=== PATIENT | male | born 1970 | race African-American/Black ===

== ENCOUNTER 2021-02-12 16:42 | Emergency (ER) | payer MEDICAID ==
[~2021-02-12] VITALS: Ht 182.9 cm; Wt 108.0 kg
[2021-02-12 17:34] LABS: BASOPHILS % 0.5 % (0.0-2.0); EOSINOPHILS % 0.6 % (0.0-5.0); HEMATOCRIT. 44.1 % (42.0-52.0); HEMOGLOBIN. 15.1 g/dL (14.0-18.0); LYMPHOCYTES % 33.5 % (20.0-50.0); MEAN CORPUSCULAR HEMOGLOBIN 30.5 pg (28.0-32.0); MEAN CORPUSCULAR VOLUME 89.1 fL (80.0-94.0); MONOCYTES % 9.9 % (2.0-8.0); NEUTROPHILS % 55.5 % (40.0-76.0); PLATELET 278 x1000/uL (130-400); RED BLOOD CELL COUNT 4.95 mill/uL (4.7-6.1); RED CELL DISTRIBUTION WIDTH 15.6 % (11.6-14.6)
[2021-02-12 17:39] LABS: CHLORIDE 105 mEq/L (98-107)
[2021-02-12 17:47] VITALS: BP 120/78
== END 2021-02-12 18:05 | disposition left against medical advice (07) ==
LOC: EDSEX 16:42 → ER 17:24
DX: R41.82 Altered mental status, unspecified (principal); I10 Essential (primary) hypertension; F17.200 Nicotine dependence, unspecified, uncomplicated; Z98.890 Other specified postprocedural states
CPT/HCPCS: 36415; 71045; 80053; 84484; 85025; 99284